=== PATIENT | female | born 1980 | race Caucasian/White ===

== ENCOUNTER 2021-07-15 12:43 | Emergency (ER) | payer MEDICAID ==
[2021-07-15 12:53] VITALS: BP 125/60
--- NOTE | 2021-07-15 13:53 | ED Physician Documentation ---
History of Present Illness - Stated complaint Stated Complaint: RT LEG PX - Chief complaint Chief Complaint: Ext Problem - Additonal information Additional information: 32-year-old female presents emergency department for evaluation of acute pain and swelling to her right anterior thigh. Reports that she woke up yesterday morning with it. She denies any exertional activities or trauma that could have contributed. There is no Erythema.pt reports pain is constant, throbbing and radiates down her leg. denies low back pain Patient is concerned she could have a DVT. There is a familial history of DVT and she is on estrogen. 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 This was for early menopause reasons. No calf pain. No recent immobilization. No personal history of DVT or cancer. No travel. Positive estrogen. pt denies CP or SOA. no pleuritic chest pain. no GENTILE. Review of Systems Constitutional: reports: Myalgias (right anterior thigh). denies: Fever, Chills Eyes: reports: Reviewed and negative Ears: reports: Reviewed and negative Throat: reports: Reviewed and negative Cardiac: reports: Reviewed and negative Respiratory: reports: Reviewed and negative Musculoskeletal: reports: Extremity pain (right thigh) Neurologic: reports: Reviewed and negative PD PAST MEDICAL HISTORY - Allergies Allergies/Adverse Reactions: Allergies Allergy/AdvReac Type Severity Reaction Status Date / Time amoxicillin Allergy Anaphylaxis Verified 07/15/21 12:51 chlorhexidine Allergy Rash Verified 07/15/21 12:51 ibuprofen Allergy Hallucinati Verified 07/15/21 12:51 [From Advil Cold and Sinus] ons Iodine and Iodide Containing Allergy Itching Verified 07/15/21 12:51 Produc peanut Allergy Anaphylaxis Verified 07/15/21 12:51 Penicillins Allergy Anaphylaxis Verified 07/15/21 12:51 pseudoephedrine Allergy Unknown Verified 07/15/21 12:51 shellfish derived Allergy Anaphylaxis Verified 07/15/21 12:51 Sulfa (Sulfonamide Allergy Rash Verified 07/15/21 12:51 Antibiotics) PD ED PE EXPANDED - General General: Alert, No acute distress - Cardiac Cardiac: Regular Rate, Radial strong equal, Pedal strong equal, Cap refill < 2 sec. No: Murmur Present - Respiratory Respiratory: Clear to ausultation luna. No: Distress, Labored - Extremities Extremities: Pedal Pulses Present, Other (tenderness and mild palpable swelling 3X4cm w/o erythema right anterior thigh. normal gair. normal ROM of hip and knee). No: Pedal edema bilateral, Right calf TTP/cord, Left calf TTP/cord Results - Vitals Vitals: Vital Signs - 24 hr 07/15/21 12:51 Temperature 36.5 C Heart Rate 77 Respiratory 16 Rate Blood Pressure 125/60 O2 Saturation 98 Oxygen O2 Source Room air - Labs Labs: Laboratory Tests 07/15/21 07/15/21 14:01 14:01 WBC 5.9 RBC 4.68 Hgb 13.6 Hct 40.8 MCV 87.2 MCH 29.1 MCHC 33.3 RDW 11.8 L Plt Count 218 MPV 11.0 H Neut # (Auto) 2.8 Lymph # (Auto) 2.6 [place] # (Auto) 0.4 Eos # (Auto) 0.1 Baso # (Auto) 0.0 Absolute Nucleated RBC 0.00 Nucleated RBC % 0.0 Sodium 140 Potassium 4.0 Chloride 104 Carbon Dioxide 25 Anion Gap 11.0 BUN 14 Creatinine 0.7 Estimated GFR (MDRD) 94 Glucose 88 Calcium 9.5 Total Bilirubin 0.5 AST 21 ALT 21 Alkaline Phosphatase 38 L Total Protein 8.2 Albumin 4.4 Globulin 3.8 Albumin/Globulin Ratio 1.2 Lipase 23 - Rads (name of study) Right leg US DVT Radiology: Final report received (No deep vein thrombosis identified. The area of concern imaged does not show obvious cause) PD MEDICAL DECISION MAKING - ED course Complexity details: reviewed results, considered differential, d/w patient ED course: 40-year-old female presents emergency department for evaluation of acute right anterior thigh pain that began yesterday. No history of trauma. There is mild palpable swelling but no erythema. She is on estrogen secondary to history of endometrial-itis and total abdominal hysterectomy. Her biggest concern is for that of a blood clot. Ultrasound DVT is negative. The area of concern was also visualized with the ultrasound but no obvious cause was found. Patient screening labs show no leukocytosis. The etiology of her symptoms is not clear though it may be early infection or shingles. I have advised patient to monitor carefully if symptoms worsening, she develops erythema red streaking or fevers return immediately to the ER for second evaluation. Departure - Departure Disposition: 01 Home, Self Care Clinical Impression: Right thigh pain Condition: Stable Record reviewed to determine appropriate education?: Yes Comments: Mirlande the labs obtained today show no anemia and a normal platelet count. Your electrolytes also do not show any worrisome findings. We did do an ultrasound of the right leg that did not show any blood clots. The cause of the pain and the mild swelling in the thigh is not clear at this time. It may be that it is simply too early to see signs of infection. Therefore if at any point you develop increased swelling, have redness, have firmness of the thigh, have red streaking, severe pain then please return immediately to the ER for a second evaluation. I do recommend warm compress over the area of discomfort for 10 minutes 3 times a day. I also recommend Tylenol and ibuprofen [id number] for discomfort.
[2021-07-15 14:07] LABS: BASOPHILS % (AUTO) 0.5 %; EOSINOPHILS # (AUTO) 0.1 10^3/uL (0.0-0.7); EOSINOPHILS % (AUTO) 1.2 %; HCT - HEMATOCRIT 40.8 % (37.0-47.0); HGB - HEMOGLOBIN 13.6 g/dL (12.0-16.0); LYMPHOCYTES # (AUTO) 2.6 10^3/uL (1.5-3.5); LYMPHOCYTES % (AUTO) 44.5 %; MEAN CORPUSCULAR HEMOGLOBIN 29.1 pg (27.0-31.0); MEAN CORPUSCULAR HGB CONC 33.3 g/dL (32.0-36.0); MEAN CORPUSCULAR VOLUME 87.2 fL (81.0-99.0); MONOCYTES # (AUTO) 0.4 10^3/uL (0.0-1.0); MONOCYTES % (AUTO) 7.4 %; NEUTROPHILS # (AUTO) 2.8 10^3/uL (1.5-6.6); NEUTROPHILS % (AUTO) 46.4 %; PLT - PLATELET COUNT 218 10^3/uL (130-450); RED BLOOD COUNT 4.68 10^6/uL (4.20-5.40); RED CELL DISTRIBUTION WIDTH 11.8 % (12.0-15.0); WHITE BLOOD COUNT 5.9 x10^3/uL (4.8-10.8)
[2021-07-15 14:20] LABS: ALBUMIN 4.4 g/dL (3.2-5.5); ALBUMIN/GLOBULIN RATIO 1.2 (1.0-2.2); BILIRUBIN,TOTAL 0.5 mg/dL (0.2-1.0); CALCIUM 9.5 mg/dL (8.5-10.3); CREATININE 0.7 mg/dL (0.4-1.0); TOTAL PROTEIN 8.2 g/dL (6.7-8.2)
--- NOTE | 2021-07-15 14:53 | Ultrasound Report ---
PROCEDURE: Duplex Ext Veins Right INDICATIONS: pain swelling righ tthigh; ? dvt. ? lipoma? TECHNIQUE: Real-time imaging, as well as color and pulse Doppler interrogation, were performed of the lower extr emity deep veins from the inguinal ligament to the popliteal fossa. COMPARISON: None. FINDINGS: The deep veins are normally compressible, and free of intraluminal thrombus. Color and pu lse Doppler demonstrate normal phasic intraluminal flow. There is normal augmentation response to di stal compression maneuver. No sonographic abnormality or discrete mass identified in the area of clinical interest in the right thigh. IMPRESSION: No evidence of deep vein thrombosis involving the right lower extremity. Reviewed by: Razia Jamison MD, PhD on 07/15/2021 2:51 PM PDT Approved by: Razia Jamison MD, PhD on 07/15/2021 2:51 PM PDT Station ID: [id number]
== END 2021-07-15 15:02 | disposition home or self-care (01) ==
LOC: ED 12:43
DX: M79.651 Pain in right thigh (principal)
CPT/HCPCS: 36415; 80053; 83690; 85025; 99283; 99284

== ENCOUNTER 2021-11-22 08:51 | Emergency (ER) | payer MEDICAID ==
[2021-11-22 10:03] LABS: RAPID STREP SCREEN Negative (Negative)
--- NOTE | 2021-11-22 10:35 | ED Physician Documentation ---
PD HPI URI - Stated complaint Stated Complaint: FEVER/SOA - Chief complaint Chief Complaint: Resp - History obtained from History obtained from: Patient - History of Present Illness Timing - onset: How many weeks ago (1) Timing duration: Weeks (1) Timing details: Gradual onset, Still present Associated symptoms: Fever, Chills, Sweats, Nasal congestion, Rhinorrhea, Dry cough, Dyspnea Contributing factors: Sick contact Improves by: Rest, Medication Worsened by: Activity Similar symptoms before: Diagnosis (URI) - Additional information Additional information: 41-year-old female sick for the past week with upper respiratory symptoms cough congestion aches. She believes she might of been exposed 1 week ago and she is immunized against COVID. Review of Systems Constitutional: reports: Fever, Chills, Myalgias, Fatigue, Sweats Eyes: denies: Decreased vision Ears: denies: Ear pain Nose: reports: Rhinorrhea / runny nose, Congestion Throat: reports: Sore throat Cardiac: denies: Chest pain / pressure, Palpitations Respiratory: reports: Cough. denies: Dyspnea GI: denies: Vomiting, Diarrhea PD PAST MEDICAL HISTORY - Past Medical History Past Medical History: Yes Cardiovascular: None Respiratory: None Neuro: Tremors Endocrine/Autoimmune: None GI: Diverticulitis [employer]: Endometriosis : None HEENT: None Psych: None Musculoskeletal: None Derm: None - Past Surgical History Past Surgical History: Yes General: Colonoscopy /[employer]: Hysterectomy HEENT: Tonsil/Adenoidectomy - Present Medications Home Medications: Ambulatory Orders Medication Instructions Recorded Confirmed Estradiol [Estrace] 0.5 mg PO DAILY 11/22/21 11/22/21 - Allergies Allergies/Adverse Reactions: Allergies Allergy/AdvReac Type Severity Reaction Status Date / Time amoxicillin Allergy Anaphylaxis Verified 11/22/21 08:59 chlorhexidine Allergy Rash Verified 11/22/21 08:59 ibuprofen Allergy Hallucinati Verified 11/22/21 08:59 [From Advil Cold and Sinus] ons Iodine and Iodide Containing Allergy Itching Verified 11/22/21 08:59 Produc peanut Allergy Anaphylaxis Verified 11/22/21 08:59 Penicillins Allergy Anaphylaxis Verified 11/22/21 08:59 pseudoephedrine Allergy Unknown Verified 11/22/21 08:59 shellfish derived Allergy Anaphylaxis Verified 11/22/21 08:59 Sulfa (Sulfonamide Allergy Rash Verified 11/22/21 08:59 Antibiotics) - Social History Does the pt smoke?: No Smoking Status: Never smoker Does the pt drink ETOH?: No Does the pt have substance abuse?: No - Immunizations Immunizations are current?: Yes PD ED PE NORMAL - General General: Alert and oriented X 3, No acute distress, Well developed/nourished - HEENT HEENT: Atraumatic, PERRL, EOMI, Ears normal, Moist mucous membranes, Other (Mild generalized posterior pharyngeal erythema) - Neck Neck: Supple, no meningeal sign, No bony TTP - Cardiac Cardiac: RRR, No murmur - Respiratory Respiratory: No respiratory distress, Clear bilaterally - Abdomen Abdomen: Normal bowel sounds, Soft, Non tender, Non distended, No organomegaly - Back Back: No CVA TTP, No spinal TTP - Derm Derm: Normal color, Warm and dry, No rash - Extremities Extremities: No deformity, No edema - Neuro Neuro: Alert and oriented X 3, 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, No motor deficit, No sensory deficit, Normal speech Eye Opening: Spontaneous Motor: Obeys Commands Verbal: Oriented GCS Score: 15 - Psych Psych: Normal mood, Normal affect Results - Vitals Vitals: Vital Signs - 24 hr 11/22/21 11/22/21 11/22/21 08:55 09:53 10:49 Temperature 36.9 C 37.3 C 36.6 C Heart Rate 91 78 76 Respiratory 16 18 18 Rate Blood Pressure 143/87 H 128/69 127/77 O2 Saturation 98 96 98 Oxygen O2 Source Room air - Labs Labs: Laboratory Tests 11/22/21 09:38 Group A Strep Rapid Negative PD MEDICAL DECISION MAKING - ED course Complexity details: reviewed results, re-evaluated patient, considered differential, d/w patient ED course: Has [id number] female with a sore throat aches and pains COVID she is immunized COVID test is pending. Rapid strep was negative. She has no other signs of inflammation on her examination. She is administered a 10 mg dose of dexamethasone here in the emergency department. Departure - Departure Disposition: 01 Home, Self Care Clinical Impression: Viral URI with cough Condition: Stable Instructions: ED Upper Resp Infec No Abx Tx Follow-Up: EMILY HAYWOOD MD [Primary Care Provider] - Comments: Bright Sanchez COVID test is pending. Your rapid strep was negative. Make certain that you take Tylenol to treat the fever and use additional fluids. Your results should be available in 1 to 3 days. Discharge Date/Time: 11/22/21 10:59
[2021-11-22] MEDS ORDERED: CHERRY SYRUP 10 ML UDC PO ONE (10:37)
[2021-11-22] MEDS ORDERED: DEXAMETHASONE 10 MG/ML VIAL PO STA (10:37)
[2021-11-22 10:50] VITALS: BP 127/77
== END 2021-11-22 10:59 | disposition home or self-care (01) ==
LOC: ED 08:51
DX: U07.1 COVID-19 (principal); J06.9 Acute upper respiratory infection, unspecified
CPT/HCPCS: 87070; 87430; 87635; 99282; 99283; A9270

== ENCOUNTER 2022-03-31 21:21 | Emergency (ER) | payer MEDICAID ==
[2022-03-31] MEDS ORDERED: IBUPROFEN 600 MG TABLET PO STA (21:55)
[2022-03-31] MEDS ORDERED: DEXAMETHASONE 10 MG/ML VIAL PO STA (21:55)
[2022-03-31] MEDS ORDERED: CHERRY SYRUP 10 ML UDC PO ONE (21:56)
--- NOTE | 2022-03-31 21:58 | ED Physician Documentation ---
History of Present Illness - Stated complaint Stated Complaint: R HAND SWOLLEN/TINGLING/BURNING - Chief complaint Chief Complaint: Cardiac - Additonal information Additional information: Patient is a 41-year-old female presenting to the emergency department with right-sided arm pain and hand swelling. Reports burning sensation that travels up and down her right arm from her neck to her fingertips. States has swelling around her index finger. He denies any trauma to the arm. Denies any chest pain however does express concern that she could be having a coronary event, stating a positive family history with mother who had a major coronary event in her early 30s. Also reports easy bruising x1 year. Otherwise denies for any fever, chills, shortness of breath, abdominal pain, nausea, vomiting, diarrhea, constipation. Review of Systems Ten Systems: 10 systems reviewed and negative Constitutional: denies: Fever Eyes: denies: Loss of vision Ears: denies: Loss of hearing Nose: denies: Rhinorrhea / runny nose Throat: denies: Dental pain / toothache Cardiac: denies: Chest pain / pressure Respiratory: denies: Dyspnea GI: denies: Abdominal Pain : denies: Dysuria Skin: denies: Rash Musculoskeletal: denies: Neck pain Neurologic: denies: Generalized weakness Psychiatric: denies: Depressed PD PAST MEDICAL HISTORY - Past Medical History Cardiovascular: None Respiratory: None Neuro: Tremors Endocrine/Autoimmune: None GI: Diverticulitis ADMIN ASST: Endometriosis : None HEENT: None Psych: None Musculoskeletal: None Derm: None - Past Surgical History Past Surgical History: Yes General: Colonoscopy /ADMIN ASST: Hysterectomy HEENT: Tonsil/Adenoidectomy - Present Medications Home Medications: Ambulatory Orders Medication Instructions Recorded Confirmed Estradiol [Estrace] 0.5 mg PO DAILY 11/22/21 03/31/22 Acetaminophen [Tylenol] 650 mg PO Q6H PRN #30 tablet 03/31/22 Ibuprofen [Motrin] 800 mg PO Q8H PRN #30 tablet 03/31/22 Pregabalin [Lyrica] 100 mg PO TID #60 cap 03/31/22 - Allergies Allergies/Adverse Reactions: Allergies Allergy/AdvReac Type Severity Reaction Status Date / Time amoxicillin Allergy Anaphylaxis Verified 03/31/22 21:40 chlorhexidine Allergy Rash Verified 03/31/22 21:40 ibuprofen Allergy Hallucinati Verified 03/31/22 21:40 [From Advil Cold and Sinus] ons Iodine and Iodide Containing Allergy Itching Verified 03/31/22 21:40 Produc peanut Allergy Anaphylaxis Verified 03/31/22 21:40 Penicillins Allergy Anaphylaxis Verified 03/31/22 21:40 pseudoephedrine Allergy Unknown Verified 03/31/22 21:40 shellfish derived Allergy Anaphylaxis Verified 03/31/22 21:40 Sulfa (Sulfonamide Allergy Rash Verified 03/31/22 21:40 Antibiotics) - Social History Does the pt smoke?: No Smoking Status: Never smoker Does the pt drink ETOH?: No Does the pt have substance abuse?: No - Immunizations Immunizations are current?: Yes PD ED PE NORMAL - Vitals Vital signs reviewed: Yes - General General: Alert and oriented X 3 - HEENT HEENT: Atraumatic - Neck Neck: Other (Positive right-sided Spurling sign) - Cardiac Cardiac: RRR, No gallop - Respiratory Respiratory: No respiratory distress - Abdomen Abdomen: Normal bowel sounds - Female Female : Deferred - Rectal Rectal: Deferred - Extremities Extremities: Other (Soft tissue swelling at the proximal phalanx to the right index finger) Results - Vitals Vitals: Vital Signs - 24 hr 03/31/22 21:36 Temperature 37.3 C Heart Rate 72 Respiratory 19 Rate Blood Pressure 155/92 H O2 Saturation 97 Oxygen O2 Source Room air - EKG (time done) 2152 Rate: Rate (enter#) (67) Rhythm: NSR [place]: Normal Intervals: Normal AR QRS: Normal Ischemia: Normal ST segments Computer interpretation: Agree with computer - Labs Labs: Laboratory Tests 03/31/22 03/31/22 03/31/22 22:05 22:05 22:05 WBC 6.8 RBC 4.47 Hgb 13.2 Hct 39.2 MCV 87.7 MCH 29.5 MCHC 33.7 RDW 12.1 Plt Count 232 MPV 10.6 Neut # (Auto) 2.8 Lymph # (Auto) 3.3 [place] # (Auto) 0.6 Eos # (Auto) 0.1 Baso # (Auto) 0.0 Absolute Nucleated RBC 0.00 Nucleated RBC % 0.0 PT 11.5 INR 1.0 Sodium 141 Potassium 3.5 Chloride 105 Carbon Dioxide 27 Anion Gap 9.0 BUN 12 Creatinine 0.8 Estimated GFR (MDRD) 80 L Glucose 95 Calcium 9.5 Total Bilirubin 0.4 AST 26 ALT 22 Alkaline Phosphatase 31 L Total Protein 7.6 Albumin 4.1 Globulin 3.5 Albumin/Globulin Ratio 1.2 PD MEDICAL DECISION MAKING - ED course Complexity details: reviewed results, re-evaluated patient, d/w patient ED course: Patient presents to the emergency department with right arm pain with associated burning and right-sided cervical radiculopathy. Afebrile, hemodynamically stable. Did have some tenderness and soft tissue swelling around her second phalanx, proximal interphalangeal joint and I obtained x-ray which was negative. She did express concern that there could be a cardiac component to her presentation however she denied any specific chest pain, and her EKG was nonacute. Labs are also within normal limits. She received dose Decadron and Motrin here in the emergency department. She is Spurling's sign positive with rightward ear to shoulder. Will discharge onShort course of Lyrica with Motrin and Tylenol. Encouraged careful follow-up with primary care as well as return to the emergency department as needed. Departure - Departure Disposition: 01 Home, Self Care Clinical Impression: Cervical radiculopathy Instructions: ED Cervical Radiculopathy Prescriptions: Pregabalin [Lyrica] 100 mg PO TID #60 cap Ibuprofen [Motrin] 800 mg PO Q8H PRN #30 tablet PRN Reason: PAIN &/OR FEVER Acetaminophen [Tylenol] 650 mg PO Q6H PRN #30 tablet PRN Reason: PRN PAIN &/OR FEVER Comments: Thank you for allowing us to care for you this evening at [facility]. Prescription sent to [facility] in [place] All the testing performed in the emergency department including your EKG and blood work were all very reassuring. Believe the most likely explanation for your symptoms is a pinched nerve in your neck, also known as cervical radiculopathy. Attached in this discharge packet is some information about this condition. I will be sending some prescriptions to your preferred pharmacy including a prescription for medication known as Lyrica, Also known as gabapentin. This is known to help with neuropathic pain. This medication is sedating and should not use it if you are operating a motor vehicle, using heavy machinery or you are the sole project reservoir engineer of young children. Please follow-up with your primary care doctor soon as possible. If it anytime you develop any new or worsening symptoms please not hesitate to return.
[2022-03-31 22:17] LABS: BASOPHILS % (AUTO) 0.4 %; EOSINOPHILS # (AUTO) 0.1 10^3/uL (0.0-0.7); EOSINOPHILS % (AUTO) 1.5 %; HCT - HEMATOCRIT 39.2 % (37.0-47.0); HGB - HEMOGLOBIN 13.2 g/dL (12.0-16.0); LYMPHOCYTES # (AUTO) 3.3 10^3/uL (1.5-3.5); LYMPHOCYTES % (AUTO) 48.6 %; MEAN CORPUSCULAR HEMOGLOBIN 29.5 pg (27.0-31.0); MEAN CORPUSCULAR HGB CONC 33.7 g/dL (32.0-36.0); MEAN CORPUSCULAR VOLUME 87.7 fL (81.0-99.0); MEAN PLATELET VOLUME 10.6 fL (7.9-10.8); MONOCYTES # (AUTO) 0.6 10^3/uL (0.0-1.0); MONOCYTES % (AUTO) 8.6 %; NEUTROPHILS # (AUTO) 2.8 10^3/uL (1.5-6.6); NEUTROPHILS % (AUTO) 40.8 %; PLT - PLATELET COUNT 232 10^3/uL (130-450); RED BLOOD COUNT 4.47 10^6/uL (4.20-5.40); RED CELL DISTRIBUTION WIDTH 12.1 % (12.0-15.0); WHITE BLOOD COUNT 6.8 x10^3/uL (4.8-10.8)
[2022-03-31 22:18] LABS: PT - PROTHROMBIN TIME 11.5 secs (9.9-12.6)
[2022-03-31 22:24] LABS: ALBUMIN 4.1 g/dL (3.2-5.5); ALBUMIN/GLOBULIN RATIO 1.2 (1.0-2.2); BILIRUBIN,TOTAL 0.4 mg/dL (0.2-1.0); CALCIUM 9.5 mg/dL (8.5-10.3); CREATININE 0.8 mg/dL (0.4-1.0); POTASSIUM 3.5 mmol/L (3.5-5.0); TOTAL PROTEIN 7.6 g/dL (6.7-8.2)
--- NOTE | 2022-03-31 22:42 | XRAY Report ---
PROCEDURE: Hand 3 View RT INDICATIONS: Swelling of index finger, hand swelling TECHNIQUE: 3 views of the hand acquired. COMPARISON: None. FINDINGS: Bones: No fractures or dislocations. There is mild degeneration of the distal interphalangeal joint s. No suspicious bony lesions. Soft tissues: No suspicious soft tissue calcifications. IMPRESSION: 1. No fracture or dislocation. 2. Mild degeneration of the distal interphalangeal joints. Reviewed by: Jeremiah Payton MD on 03/31/2022 10:40 PM PDT Approved by: Jeremiah Payton MD on 03/31/2022 10:40 PM PDT Station ID: [id number]
[2022-03-31 23:19] VITALS: BP 133/58
== END 2022-03-31 23:19 | disposition home or self-care (01) ==
LOC: ED 21:21
DX: M54.12 Radiculopathy, cervical region (principal)
CPT/HCPCS: 36415; 73130; 80053; 85025; 85610; 93005; 99284; A9270

== ENCOUNTER 2022-11-07 07:00 | Outpatient (CLI) | payer MEDICAID | END 2022-11-07 23:59 | disposition home or self-care (01) | LOC: LAB.S 07:00 | PROVIDERS: ATTEND Nurse Practitioner | DX: R21 Rash and other nonspecific skin eruption (principal) | CPT/HCPCS: 87255 ==

== ENCOUNTER 2022-11-08 10:48 | Outpatient (CLI) | payer MEDICAID ==
[2022-11-09 04:09] LABS: HSV 1 IGG TYPE SPEC 1.12 index (0.00-0.90); HSV 2 IGG TYPE SPEC <0.91 index (0.00-0.90)
== END 2022-11-08 10:49 | disposition home or self-care (01) ==
LOC: LAB.N 10:48
PROVIDERS: ATTEND Nurse Practitioner
DX: R21 Rash and other nonspecific skin eruption (principal)
CPT/HCPCS: 36415; 86695; 86696